=== PATIENT | female | born 2000 | race Caucasian/White ===

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

== ENCOUNTER 2022-07-08 17:46 | Emergency (ER) | payer MEDICAID, SELFPAY ==
[2022-07-08 17:48] VITALS: BP 124/57; PULSE 86; RESP 15; TEMP 36.4; O2SAT 97; BMI 29.2
== END 2022-07-08 20:40 | disposition left against medical advice (07) ==
LOC: ED 20:51
DX: Z53.21 Procedure and treatment not carried out due to patient leaving prior to being seen by health care provider (principal)

== ENCOUNTER 2022-08-13 23:27 | Emergency (ER) | payer MEDICAID, SELFPAY ==
[2022-08-13 23:29] VITALS: BP 113/69; PULSE 87; RESP 15; TEMP 36.2; O2SAT 100
--- NOTE | 2022-08-13 23:52 | EDS_ITS ---
HPI History of Present Illness Chief Complaint: General Illness Detail of Chief Complaint: Headache, possible UTI, upper respiratory symptoms Informant: patient Narrative Narrative: Patient presents to the emergency department with multiple complaints. Patient tells me that she is 14 weeks . She has been having urinary frequency and some mild dysuria for about 2 weeks but she thought it was all related to her being . Patient does get frequent urinary tract infections. Patient also she states that over the last 3 to 4 days she had some upper respiratory symptoms including mild sore throat and headache. She complains of some mild myalgias. Her boyfriend with similar symptoms and is concerned about COVID. Patient denies any vaginal bleeding. She had an ultrasound of the 4 weeks ago and all looked well. Patient denies any fever. She does get migraines frequently. She took some Tylenol but did not get much relief. Currently rates her headache a 9 out of 10. PFSH PFSH Home Medications cephalexin 500 mg capsule 500 mg PO Q6 #12 CAPSULES 08/31/21 [Rx Last Taken Unknown] ondansetron 4 mg disintegrating tablet 4 mg PO Q8H PRN nausea and vomiting #14 tabs 12/30/21 [Rx Last Taken Unknown] Allergy/AdvReac Type Severity Reaction Status Date / Time codeine Allergy Rash Verified 08/13/22 23:33 sertraline [From Zoloft] Allergy Other Verified 08/13/22 23:33 Social History Smoking Status: Never smoker Smokeless tobacco user: other alcohol intake: never ROS ROS ED Review of Systems ROS Unobtainable: other Constitutional Constitutional ED: Reports lethargy; Denies chills, fever(s), sweats or weight loss Eyes Eyes: Denies blurry vision, change in vision or diplopia ENT ENT ED: Denies rhinorrhea or sore throat Cardiovascular Cardiovascular: Denies chest pain, orthopnea or racing heartbeat Respiratory/Chest Respiratory/Chest: Reports cough; Denies dyspnea, dyspnea on exertion, orthopnea or sputum Gastrointestinal Gastrointestinal: Denies abdominal pain, diarrhea, nausea or vomiting Genitourinary Genitourinary ED: Reports dysuria and urinary frequency; Denies hematuria Musculoskeletal Musculoskeletal: Denies arthralgias, back pain, myalgias or neck pain Integumentary Denies abscess, Abrasions or rash Neurologic Neurologic: Reports headache(s); Denies weakness Psychiatric Psychiatric: Denies anxiety, depression or suicidal thoughts Endocrine Endocrinology: Denies polydipsia, polyphagia or polyuria Hematologic/Lymphatic Hematologic/Lymphatic: Denies easy bleeding, easy bruising or lymphadenopathy Allergic/Immunologic Allergic/Immunologic ED: Denies mouth swelling, tongue swelling or urticaria EXAM Physical Exam Const Vital Signs: 08/13/22 23:29 Temperature 97.1 F L Temperature Source Temporal Pulse Rate 87 Respiratory Rate 15 Blood Pressure 113/69 Blood Pressure Mean 83 Pulse Ox 100 Oxygen Delivery Method Room Air Positive well nourished and well developed General Appearance ED: well developed and NAD HEENT Reports TM's clear and moist mucous membranes normocephalic and atraumatic; Negative for trauma or tenderness Tympanic Membrane ED: Yes TM's clear Eyes PERRL and EOMs intact bilaterally General Eye ED: Negative for pale conjunctiva or scleral icterus Neck no lymphadenopathy, supple and no JVD General: Negative for tenderness Chest Wall inspection of chest normal and palpation of chest normal Chest: Negative for tenderness Resp normal respiratory effort and clear to auscultation bilaterally Effort and Inspection: Negative for respiratory distress or pain with movement Auscultation: Negative for rhonchi, wheezes or diminished lung sounds Cardio regular rate, regular rhythm, S1 normal heart sound, S2 normal heart sound and no murmurs Peripheral Pulses: pulses 2+ throughout GI normal to inspection, nondistended, normoactive bowel sounds, soft to palpation, non-tender, non-distended and no masses Back/Spine no CVA tenderness and no thoracic nor lumbar tenderness Extremity normal to inspection General Extremety ED: Negative for edema General Extremity: Negative for edema Neuro oriented x3, CN's II-XII intact bilaterally, no sensory deficits noted and gait normal Neuro Narrative: Finger-nose and heel rachel testing within normal limits, negative Romberg, negative for drift, fundi benign Sensorium / Orientation: awake, alert, oriented to person, oriented to place and oriented to time Motor Exam: strength 5/5 throughout and strength abnormal Psych mental status grossly normal Skin no rashes or lesions noted and no wounds MDM MDM MDM Narrative Medical decision making narrative: Patient presents the ER with multiple complaints. I did put an IV and gave her a liter of fluid as well as Reglan and Benadryl and her headache mostly resolved. Urinalysis was unremarkable. And she had a negative COVID and flu test. At this time I suspect possibly migraine. Also suspect she may have a viral URI. Patient recommended she follow-up with her primary care physician or MEDICAL SALES SPECIALIST within next 3 to 5 days. Lab Data Attestation: I reviewed the patient's lab results. Labs: Laboratory Results - last 24 hr 08/13/22 23:59 Urine Color Yellow Urine Clarity Clear Urine pH 6.0 Ur Specific Cicero 1.025 Urine Protein 15 H Urine Glucose (UA) Normal Urine Ketones 5 H Urine Occult Blood Negative Urine Nitrite Negative Urine Bilirubin Negative Urine Urobilinogen Normal Ur Leukocyte Esterase 25 H Urine RBC 0 SEEN Urine WBC 5-10 SEEN Ur Squamous Epith Cells 10-25 SEEN Urine Bacteria 1+ Urine Mucus 3+ Discharge Plan Triage Chief Complaint: General Illness ED Provider: Selena Moody Dx/Rx/DC Orders Clinical Impression: Migraine, Viral URI Instructions: ED, Migraine (Classical), ED URI, Viral, No Abx (Adult) Prescriptions: No Action cephalexin [cephalexin] 500 MG capsule 500 mg PO Q6 Qty: 12 0RF ondansetron 4 mg tablet,disintegrating 4 mg PO Q8H PRN (Reason: nausea and vomiting) Qty: 14 0RF Primary Care Provider: Lyla Cronin NP Referrals: Dana Gr MD [Med Staff - Active Staff] - 3-5 Days Care Physician,No Primary [Non-Staff] - Disposition Disposition: Home, Self Care
[2022-08-14] MEDS: Metoclopramide 10 MG/2 ML Vial IV (00:41)
[2022-08-14] MEDS: 0.9% Normal Saline 1,000 ML 1000 ML IV (00:41)
[2022-08-14] MEDS: DiphenhydrAMINE 50 MG/ML Syringe 25 MG IV (00:41)
[2022-08-14 01:00] LABS: Color, Urine Yellow (Yellow); Glucose, Dipstick Normal (Normal); Ketone-Dipstick 5 mg/dl (Negative); Leukocyte Esterase-Dipstick 25 /ul (Negative); Nitrite-Dipstick Negative (Negative); Occult Blood-Urine Negative /ul (Negative); Protein-Dipstick 15 mg/dl (Negative); Specific Gravity, Urine 1.025 (1.002-1.030); Urine Bilirubin Dipstick Negative (Negative); Urine Clarity Clear (Clear); Urine Urobilinogen Normal (Normal)
[2022-08-14 01:13] LABS: Red Blood Cells-Urine 0 SEEN /hpf (0-5); Squamous Epithelial Cells - UA 10-25 SEEN /hpf (5-10); White Blood Cells 5-10 SEEN /hpf (0-5)
[2022-08-14 01:14] LABS: Bacteria 1+ /hpf (None Seen); Mucous, Urine 3+ /hpf (<or=2+)
[2022-08-14 01:41] VITALS: O2SAT 99
== END 2022-08-14 02:03 | disposition home or self-care (01) ==
PROVIDERS: Emergency Provider Emergency Medicine; PCP Nurse Practitioner; Visit Provider Emergency Medicine
DX: O99.352 Diseases of the nervous system complicating pregnancy, second trimester (principal); O99.512 Diseases of the respiratory system complicating pregnancy, second trimester; G43.909 Migraine, unspecified, not intractable, without status migrainosus; J06.9 Acute upper respiratory infection, unspecified; Z3A.14 14 weeks gestation of pregnancy
CPT/HCPCS: 81001; 87428; 96361; 96374; 96375; 99283; J7030; A4216

== ENCOUNTER 2023-02-09 19:15 | Outpatient (CLI) | payer MEDICAID, SELFPAY ==
[2023-02-09 19:34] VITALS: BP 124/65; PULSE 103
[2023-02-09 19:38] VITALS: TEMP 36.7; O2SAT 98
[2023-02-09 19:39] VITALS: PULSE 91; O2SAT 96
[2023-02-09 19:44] VITALS: PULSE 89; O2SAT 96
[2023-02-09 19:46] VITALS: BMI 35.3
[2023-02-09 19:49] VITALS: PULSE 97; O2SAT 97
--- NOTE | 2023-02-10 06:08 | OB.TRI.HP_ITS ---
HPI - General General Date of Service: 02/09/23 HPI Narrative CARMELINA DEL ROSARIO, is a 22 F who presents with ctxs Maternal Data Information Final SONYA: 02[birth year] [facility] Medical History (Updated 02/10/23 @ 06:[address] Jefferson Herring MD) Anxiety Depression Genital herpes affecting Psychiatric disorder Home Medications vit no.95-ferrous fumarate 28 mg-folic acid 800 mcg tablet () 1 tab PO DAILY 02/09/23 [History Last Taken Unknown] risperidone 0.5 mg tablet 1.5 mg bipolar 02/09/23 [History Last Taken 02/08/23] valacyclovir 1 gram tablet 500 mg HSV 02/09/23 [History Last Taken 02/08/23] Allergy/AdvReac Type Severity Reaction Status Date / Time codeine Allergy Rash Verified 08/13/22 23:33 sertraline [From Zoloft] Allergy Other Verified 02/09/23 19:43 Social History Smoking Status: Never smoker Smokeless tobacco user: other alcohol intake: never NST FHR Rate Baby A Baseline: 125 Variability:: Moderate Accelerations:: 15 x 15 Decelerations:: None NST Reactive:: Yes Uterine Activity:: Irregular Assessment & Plan (1) False labor: COMMENT: 39&5 PLAN: Plan Reactive NST
== END 2023-02-09 21:20 | disposition home or self-care (01) ==
LOC: WPOUT 19:19 → WP 19:19
PROVIDERS: PCP Nurse Practitioner; Referring Provider Obstetrics & Gynecology; Visit Provider Obstetrics & Gynecology
DX: O47.1 False labor at or after 37 completed weeks of gestation (principal); Z3A.39 39 weeks gestation of pregnancy
CPT/HCPCS: 59025; 59050 ×2

== ENCOUNTER 2023-02-10 09:35 | Inpatient (IN) | payer MEDICAID, SELFPAY ==
[2023-02-10] VITALS (48 sets, daily range): BP systolic 89–163; BP diastolic 47–74; PULSE 75–134; RESP 15; TEMP 36.6–38.3; O2SAT 94–99; BMI 35.5
[2023-02-10] MEDS: fentaNYL 100 MCG/2 ML Ampul IV (10:30)
[2023-02-10 10:31] LABS: Absolute Lymphocyte Count 1.45 X10^3/uL (0.83-4.51); Basophil# 0.03 X10^3/uL; Basophil% 0.2 % (0-1); Eosinophil# 0.01 X10^3/uL; Eosinophils% 0.1 % (0-5); Hematocrit 40.5 % (37-47); Hemoglobin 13.8 g/dL (12.0-15.0); Lymphocyte # 1.45 X10^3/ul (0.83-4.51); Lymphocyte % 10.9 % (19-41); Mean Corp Hgb Conc 34.1 g/dL (32-36); Mean Corpuscular Hgb 32.5 pg (27.0-32.0); Mean Corpuscular Volume 95.5 fL (81-99); Mean Platelet Vol. 10.4 fl (6.2-12.0); Monocyte# 0.76 X10^3/uL; Monocyte% 5.7 % (0-10); NRBC Flagged by Analyzer 0 % (0-5); Neutrophil # 10.95 X10^3/uL (2.7-7.7); Neutrophil % 82.3 % (47-70); Platelet Count 188 K/mm3 (150-450); RBC Distribution Width CV 12.7 % (11.6-14.6); RBC Distribution Width SD 44.6 fl (35.1-43.9); Red Blood Count 4.24 M/mm3 (4.2-5.4); White Blood Count 13.3 K/mm3 (4.4-11.0)
[2023-02-10] MEDS: Lactated Ringers 1,000 ML 50 ML IV (10:32)
[2023-02-10 11:12] LABS: Syphilis Antibodies Non-reactive
[2023-02-10] MEDS: LACTATED RINGERS 500 ML 999 ML IV (11:31)
[2023-02-10] MEDS: fentaNYL-bupivacaine (epidural) 100 ML BAG EPIDURAL ×2 (11:35→16:20)
[2023-02-10] MEDS: Oxytocin 15 Units/NS 250ml 15 UNITS/250 ML IV.SOLN 2 UNITS IV (13:14)
[2023-02-10] MEDS: Lactated Ringers 1,000 ML 200 ML IV (13:46)
--- NOTE | 2023-02-10 16:37 | PCM.HP.OB ---
HPI - General General Date of Admission: 02/10/23 HPI Narrative CARMELINA DEL ROSARIO, is a 22 F @ 39.6 weeks who presents c/o contractions- found to be 3cm/90/-1, kept for labor. PFSH PFSH Medical History (Updated 02/10/23 @ 16:[address] Dana Gr MD) Anxiety Depression Genital herpes affecting Psychiatric disorder Psychiatric disorder Home Medications vit no.95-ferrous fumarate 28 mg-folic acid 800 mcg tablet () 1 tab PO DAILY 02/09/23 [History Last Taken Unknown] risperidone 0.5 mg tablet 1.5 mg bipolar 02/09/23 [History Last Taken 02/08/23] valacyclovir 1 gram tablet 500 mg HSV 02/09/23 [History Last Taken 02/08/23] Allergy/AdvReac Type Severity Reaction Status Date / Time codeine Allergy Rash Verified 08/13/22 23:33 sertraline [From Zoloft] Allergy Other Verified 02/09/23 19:43 Social History Smoking Status: Former smoker Smokeless tobacco user: other alcohol intake: never History Elective abortions Hx Para 0 Spontaneous abortions Hx # Term Pregnancies Ectopic pregnancies Hx # Pregnancies Multiple births # of living children Vital Signs Vital Signs Vital Signs: 02/10/23 10:32 02/10/23 10:32 02/10/23 11:15 Temperature Temperature Source Pulse Rate 103 H 93 Blood Pressure 123/63 H BP Systolic 123 BP Diastolic 63 Pulse Ox 02/10/23 11:15 02/10/23 11:18 02/10/23 11:18 Temperature Temperature Source Pulse Rate 104 H Blood Pressure 113/58 L BP Systolic 113 BP Diastolic 58 Pulse Ox 97 02/10/23 11:20 02/10/23 11:20 02/10/23 11:23 Temperature Temperature Source Pulse Rate 109 H Blood Pressure 113/69 BP Systolic 113 BP Diastolic 69 Pulse Ox 99 02/10/23 11:23 02/10/23 11:25 02/10/23 11:25 Temperature Temperature Source Pulse Rate 111 H 100 Blood Pressure BP Systolic BP Diastolic Pulse Ox 99 02/10/23 11:29 02/10/23 11:29 02/10/23 11:29 Temperature Temperature Source Pulse Rate 85 Blood Pressure 96/56 L BP Systolic 96 BP Diastolic 56 Pulse Ox 94 02/10/23 11:30 02/10/23 11:30 02/10/23 11:32 Temperature Temperature Source Pulse Rate 86 Blood Pressure 97/55 L BP Systolic 97 BP Diastolic 55 Pulse Ox 98 02/10/23 11:32 02/10/23 11:35 02/10/23 11:35 Temperature Temperature Source Pulse Rate 90 95 Blood Pressure BP Systolic BP Diastolic Pulse Ox 97 02/10/23 11:38 02/10/23 11:38 02/10/23 11:40 Temperature Temperature Source Pulse Rate 95 92 Blood Pressure 106/49 L BP Systolic 106 BP Diastolic 49 Pulse Ox 02/10/23 11:40 02/10/23 11:43 02/10/23 11:43 Temperature Temperature Source Pulse Rate 96 Blood Pressure 92/51 L BP Systolic 92 BP Diastolic 51 Pulse Ox 97 02/10/23 11:45 02/10/23 11:45 02/10/23 11:47 Temperature Temperature Source Pulse Rate 86 Blood Pressure 96/52 L BP Systolic 96 BP Diastolic 52 Pulse Ox 97 02/10/23 11:47 02/10/23 11:50 02/10/23 11:50 Temperature Temperature Source Pulse Rate 88 92 Blood Pressure BP Systolic BP Diastolic Pulse Ox 97 02/10/23 11:51 02/10/23 11:51 02/10/23 11:52 Temperature Temperature Source Pulse Rate 100 Blood Pressure 97/55 L 92/51 L BP Systolic 97 92 BP Diastolic 55 51 Pulse Ox 02/10/23 11:52 02/10/23 11:52 02/10/23 11:52 Temperature 97.9 F Temperature Source Temporal Pulse Rate 86 Blood Pressure BP Systolic BP Diastolic Pulse Ox 02/10/23 12:24 02/10/23 12:24 02/10/23 12:37 Temperature Temperature Source Temporal Pulse Rate 75 Blood Pressure 89/49 L BP Systolic 89 BP Diastolic 49 Pulse Ox 02/10/23 12:37 02/10/23 12:51 02/10/23 12:51 Temperature 98.3 F Temperature Source Pulse Rate 83 Blood Pressure 101/59 L BP Systolic 101 BP Diastolic 59 Pulse Ox 02/10/23 12:50 02/10/23 12:53 02/10/23 12:53 Temperature Temperature Source Pulse Rate 92 Blood Pressure 107/58 L BP Systolic 107 BP Diastolic 58 Pulse Ox 98 02/10/23 13:14 02/10/23 13:14 02/10/23 13:24 Temperature Temperature Source Pulse Rate 90 Blood Pressure 109/66 103/62 BP Systolic 109 103 BP Diastolic 66 62 Pulse Ox 02/10/23 13:24 02/10/23 13:54 02/10/23 13:54 Temperature Temperature Source Pulse Rate 78 90 Blood Pressure 105/61 BP Systolic 105 BP Diastolic 61 Pulse Ox 02/10/23 14:23 02/10/23 14:23 02/10/23 14:54 Temperature Temperature Source Pulse Rate 85 Blood Pressure 102/61 97/51 L BP Systolic 102 97 BP Diastolic 61 51 Pulse Ox 02/10/23 14:54 02/10/23 15:23 02/10/23 15:23 Temperature Temperature Source Pulse Rate 84 83 Blood Pressure 97/47 L BP Systolic 97 BP Diastolic 47 Pulse Ox 02/10/23 15:53 02/10/23 15:53 02/10/23 16:25 Temperature Temperature Source Pulse Rate 101 H Blood Pressure 109/63 93/51 L BP Systolic 109 93 BP Diastolic 63 51 Pulse Ox 02/10/23 16:25 Temperature Temperature Source Pulse Rate 93 Blood Pressure BP Systolic BP Diastolic Pulse Ox Weight Weight: 82.554 kg Body Mass Index (BMI) 35.5 Physical Exam Const alert and oriented x3 General Appearance: cooperative HEENT normocephalic GI GI Narrative: Gravid, non tender to palpation. OB / External & Speculum: external exam normal Extremity normal to inspection Skin no rashes or lesions noted Neuro oriented x3 and CN's II-XII intact bilaterally Psych Appearance: grossly normal Labs Labs Labs: Blood Type O POSITIVE Antibody Screen NEGATIVE Hct 40.5 % (37-47) Hgb 13.8 g/dL (12.0-15.0) Syphilis Total Ab Non-reactive Assessment & Plan (1) 39 weeks gestation of : (2) Active labor: (3) Rubella non-immune status, antepartum: (4) History of herpes genitalis: PLAN: Plan Admit to L&D [place] FHR/TOCO Epidural if requested for pain Monitor VS Anticipate no hsv lesions
[2023-02-10] MEDS: Lidocaine 1% (20 ml mdv) 20 ML Vial INFILT (18:41)
--- NOTE | 2023-02-10 19:20 | EX.PCM.OBRPT ---
Vaginal Delivery Maternal Presentation Maternal Presentation: Active Labor Operative Information Date of Procedure: 02/10/23 Pre-Operative Diagnosis: term gestation, H/o HSV, rubella non immune, active labor, 39 weeks gestation Post-Operative Diagnosis: same, live female infant Surgery / Procedure Performed: Vacuum Assisted Vaginal Delivery Type of Anesthesia: Epidural Drain: Trinidad to straight drain Estimated Blood Loss: 150 Time of Delivery: 18:37 Findings Description of Procedure: Patient progressed to fully dilated. Was pushing adequately scalp was at the perineum. Patient asking for assistance with delivery states that she could not continue to push. I discussed the option for vacuum assistance-discussed the risks benefits and alternatives. After discussion patient opting for trial of vacuum. Kiwi vacuum was then used placed at the flexion point Trinidad catheter was draining. Vacuum was placed at 550 mm of mercury green zone. 2 poles of the vacuum and the infant's head delivered the vacuum was then released. Good maternal pushing efforts and gentle downward traction delivered anterior shoulder followed by the rest the infant's body. The was vigorous and placed on the mother's chest for immediate skin to skin. Delayed cord clamping was performed. At this time Pitocin was started and cord blood was obtained. Placenta was delivered intact without complication. Second-degree perineal laceration was identified and repaired using 2-0 Vicryl and a 3-0 Rapide. 2% lidocaine was injected at the laceration site for better pain relief prior to repair. Patient tolerated well. Repair was hemostatic. Presentation: Vertex Amniotic Fluid Description: Clear Placental Delivery Description: Spontaneous Placenta Disposition: [facility] Specimen(s) Removed: Placenta Cord Vessel Description: 3 Vessels Cord Entanglement: None A Gender: Female (1 minute): 8 (5 minute): 9 Delayed Cord Clamping: Yes Post Vaginal Delivery Medications Given After Delivery: IV Pitocin Episiotomy Description: None Laceration: Perineal Extension/lac and 2nd degree Complication Complications: None
[2023-02-10] MEDS: Oxytocin 10 UNITS/ML Vial IM (19:24)
[2023-02-10] MEDS: Acyclovir 200 MG Capsule 400 MG PO (21:45)
[2023-02-10] MEDS: Ibuprofen 600 MG Tablet PO (21:45)
[2023-02-10] MEDS: RisperiDONE 0.5 MG Tablet 1.5 MG PO (21:45)
--- NOTE | 2023-02-10 23:31 | EKG12_ITS ---
Test Reason : Tachycardia/dizzynsess Blood Pressure : / mmHG Vent. Rate : 116 BPM Atrial Rate : 116 BPM P-R Int : 156 ms QRS Dur : 074 ms QT Int : 316 ms P-R-T Axes : 054 033 073 degrees QTc Int : 439 ms Sinus tachycardia Nonspecific ST and T wave abnormality Abnormal ECG No previous ECGs available Confirmed by CARROLL HAWKINS, WILLIE ([id number]), news assignment editor TIARA QUILES ([id number]) on 03/10/2023 1:49:29 PM Referred By: Maile Confirmed By:WILLIE HODGES MD
[2023-02-11 03:26] VITALS: BP 101/47; PULSE 98; RESP 15; TEMP 36.6; O2SAT 97
[2023-02-11] MEDS: Ibuprofen 600 MG Tablet PO (04:06)
[2023-02-11] MEDS: Benzocaine/Lanolin/Aloe Vera 1 SPRAY EACH TOPICAL (04:07)
[2023-02-11] MEDS: Acyclovir 200 MG Capsule 400 MG PO (06:12)
[2023-02-11 07:21] VITALS: BP 97/46; PULSE 90; RESP 16; TEMP 36.6; O2SAT 96
[2023-02-11 07:27] VITALS: PULSE 90; RESP 16
--- NOTE | 2023-02-11 08:19 | PCM.PN.OB ---
Subjective Subjective Patient seen at bedside. in room and hand expressing with patient. Patient denies any pain, SOB, or dizziness. Ambulating and voiding without difficulty. Possible discharge home tomorrow. Objective Data Objective Data Vital Signs: Vital Signs Temp Pulse Resp BP Pulse Ox O2 Del Method 97.8 F 90 16 97/46 L 96 Room Air 02/11/23 07:21 02/11/23 07:27 02/11/23 07:27 02/11/23 07:21 02/11/23 07:21 02/11/23 07:27 Oxygen Delivery Method Room Air Weight: 182 lb Body Mass Index (BMI) 35.5 Intake & Output: Intake and Output for Last 24 Hours 02/09/23 02/10/23 02/11/23 23:59 23:59 23:59 Intake Total 2781.46 / 2781.46 Output Total 1750 / 1750 1250 / 1250 Balance 1031.46 / 1031.46 -1250 / -1250 Lab / Micro Data 02/10/23 10:15 Labs: Laboratory Results - last 24 hr 02/10/23 10:15: WBC 13.3 H, RBC 4.24, Hgb 13.8, Hct 40.5, MCV 95.5, MCH 32.5 H, MCHC 34.1, RDW Std Deviation 44.6 H, RDW Coeff of Allyson 12.7, Plt Count 188, MPV 10.4, Immature Gran % (Auto) 0.800, Neut % (Auto) 82.3 H, Lymph % (Auto) 10.9 L, [place] % (Auto) 5.7, Eos % (Auto) 0.1, Baso % (Auto) 0.2, Absolute Neuts (auto) 11.0 H, Absolute Lymphs (auto) 1.45, Nucleated RBC % 0, Syphilis Total Ab Non-reactive, Blood Type Cancelled, Antibody Screen Cancelled 02/10/23 10:40: Blood Type O POSITIVE, Antibody Screen NEGATIVE ROS Eyes Eyes: Denies blurry vision, change in vision or spots in vision ENT HEENT: Denies dizziness or headache(s) Cardiovascular Cardiovascular: Denies abdominal pain, chest pain or dyspnea Respiratory/Chest Respiratory/Chest: Denies cough, dyspnea, shortness of breath at rest or shortness of breath with exertion Gastrointestinal Gastrointestinal: Denies abdominal pain, diarrhea or vomiting Genitourinary Genitourinary: Denies change in urinary stream, difficulty urinating or dysuria Musculoskeletal Musculoskeletal: Reports none Integumentary Integumentary: Denies rash Neurologic Neurologic: Denies dizziness, headache(s), memory loss or weakness Assessment & Plan (1) (spontaneous vaginal delivery): (2) Care and examination of lactating mother: PLAN: Plan PPD 1 Routine care support Anticipate discharge home tomorrow
[2023-02-11] MEDS: Acetaminophen 500 MG Tablet 1000 MG PO (08:32)
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
--- NOTE | 2023-02-11 12:19 | NURSING ---
This parenting skills instructor reviewed the documentation completed by Jean Azevedo.
[2023-02-11 13:53] VITALS: BP 114/61; PULSE 100; RESP 16; TEMP 36.2; O2SAT 97
--- NOTE | 2023-02-11 18:42 | NURSING ---
Discussed non-immune status for Rubella. MMR offered but refused
[2023-02-11 20:00] VITALS: BP 117/62; PULSE 70; RESP 17; TEMP 36.8; O2SAT 98
[2023-02-11] MEDS: RisperiDONE 0.5 MG Tablet 1.5 MG PO (22:42)
--- NOTE | 2023-02-12 06:23 | PCM.DC ---
Discharge Instructions Diet Discharge Diet: No restrictions Activity May resume sexual activity in: 6-8 weeks Weight Bearing Status: Weight bearing as tolerated Dressing / Incision Call your doctor if you observe: Fever of 101 or Higher, Inability to urinate, Using more than 1 pad per hour, Shortness of breath, Chest pain, Calf discomfort and Uncontrolled pain Follow Up Care Please Follow Up With: June Del Rosario CNM When: 2 weeks virtual visit/ 6 weeks in office Test Results: Test results from this visit will be discussed in further detail at your follow-up appointment, if applicable. Discharge Plan Admission Admit Date/Time: 02/10/23 09:35 Primary Reason for Your Visit: Labor and delivery Attending Provider: Dana Gr Primary Care Provider: Lyla Cronin LIBRARY ASSISTANT Instructions Forms: [facility]man Information Patient Instructions: After a Vaginal Additional Instructions / Restrictions: Follow up in the office in 2 weeks. Discharge Orders/Prescriptions Prescriptions: Continued valacyclovir 1 gram tablet 500 mg Patient Comments: TAKE 1 TABLET BY MOUTH TWICE A DAY risperidone 0.5 mg tablet 1.5 mg PNV cmb#95-ferrous fumarate-FA [] 28 mg iron- 800 mcg tablet 1 tab PO DAILY Referrals / Follow Up: Lyla Cronin NP, LIBRARY ASSISTANT-C [Primary Care Provider] - Disposition Disposition (needs filled in before D/C Order can be placed): Home, Self Care
--- NOTE | 2023-02-12 06:25 | PCM.PN.BLA ---
Progress Note Patient desired discharge last night. Instructions provided and were <30 minutes.
== END 2023-02-11 23:20 | disposition home or self-care (01) | DRG 560 ==
PROVIDERS: Admitting Provider Obstetrics & Gynecology; PCP Nurse Practitioner; Visit Provider Obstetrics & Gynecology
DX: O99.344 Other mental disorders complicating childbirth (principal); Z37.0 Single live birth; F31.9 Bipolar disorder, unspecified; O70.1 Second degree perineal laceration during delivery; Z3A.39 39 weeks gestation of pregnancy; Z79.899 Other long term (current) drug therapy; Z86.19 Personal history of other infectious and parasitic diseases; Z87.891 Personal history of nicotine dependence
CPT/HCPCS: 59025; 59050; 85025; 86780; 86850; 86900; 86901; 93005; 99221; J7120; G0378

== ENCOUNTER 2024-03-05 21:13 | Emergency (ER) | payer SELFPAY ==
[2024-03-05 21:14] VITALS: BP 127/84; PULSE 112; RESP 20; TEMP 36.8; O2SAT 100; BMI 33.6
--- NOTE | 2024-03-05 21:26 | ED.VIS.FEGU ---
HPI HPI - Female History of Present Illness Chief Complaint: Vag Bleeding Narrative Narrative: 23-year-old female, at approximately 4 weeks gestation presents with vaginal bleeding and pelvic pain that began today. She states that she is passing bright red blood with small clots vaginally. She relates history that she had her last menstrual period at the beginning of January, approximately 1 month ago around the second of the month. She was a few days late with her menses so she did a home test brought to her by her friend which was positive. That she may be having miscarriage versus an ectopic . She is unsure of her blood type, thinking that it was either O- or O+, but she does not remember getting a RhoGAM shot after the of her child last year in January. She denies any exacerbating or alleviating symptoms. She complains of lower abdominal pain. [facility] Medical History Care and examination of lactating mother (spontaneous vaginal delivery) History of herpes genitalis Rubella non-immune status, antepartum Active labor 39 weeks gestation of Psychiatric disorder Genital herpes affecting Anxiety Depression Psychiatric disorder Home Medications ?Medication ?Instructions ?Recorded ?Last Taken ?Type vit no.95-ferrous 1 tab PO DAILY 02/09/23 Unknown History fumarate 28 mg-folic acid 800 mcg tablet () risperidone 0.5 mg tablet 1.5 mg bipolar 02/09/23 02/08/23 History valacyclovir 1 gram tablet 500 mg HSV 02/09/23 02/08/23 History Allergy/AdvReac Type Severity Reaction Status Date / Time codeine Allergy Rash Verified 03/05/24 21:14 sertraline (From Zoloft) Allergy Other Verified 03/05/24 21:14 Social History Smoking Status: Former smoker Smokeless tobacco user: other alcohol intake: never ROS ROS ED ROS Narrative Constitutional: No fever, positive chills. HEENT: No sore throat. No neck pain. No loss of vision. No rhinorrhea. Cardiovascular: No chest pain. No palpitations. No pedal edema. Respiratory: No cough, no shortness of breath. Abdominal: No abdominal pain. No nausea. No vomiting. Genitourinary: No dysuria. No hematuria. Positive vaginal bleeding, positive pelvic pain and lower abdominal pain beginning today. Passing bright red blood with small clots. Musculoskeletal: No myalgias. Positive arthralgias. Neurologic: No headaches. No dizziness. No lightheadedness. Skin: No rash. No change in color. Psychiatric: No depression. No anxiety. EXAM Physical Exam Narrative Exam Narrative: Afebrile. Vital signs noted. Nontoxic-appearing. HEENT: Normocephalic. Atraumatic. PERRL, EOMI. Neck soft and supple. No point tenderness or step off. Cardiovascular: Positive tachycardia. No murmurs, rubs, or gallops appreciated. Respiratory: No tachypnea. Lungs clear to auscultation bilaterally. Gastrointestinal: Abdomen soft, mild tenderness to palpation bilateral lower quadrants more towards pelvis/suprapubic with normoactive bowel sounds. No rebound or guarding. Genitourinary: Chaperoned pelvic examination reveals small amount of dark red blood in the vaginal vault with small clot which was cleared with cotton tip swab. Os is closed, no cervical motion tenderness. Neurological: Awake. Alert. Nonfocal, nonlateralizing. Ambulates in the ED and able to transfer to cot. Skin: No rash. Normal color. No pallor. Musculoskeletal: No pedal edema. Full range of motion extremities. Const Vital Signs: 03/05/24 21:14 Temperature 98.3 F Temperature Source Oral Pulse Rate 112 H Respiratory Rate 20 H Blood Pressure 127/84 H Blood Pressure Mean 98 Pulse Ox 100 Oxygen Delivery Method Room Air MDM MDM MDM Narrative Medical decision making narrative: Differential diagnosis does include ectopic versus threatened AB/miscarriage versus intrauterine and vaginal bleeding with . Comprehensive workup was pursued. I did review her prior laboratory work and she is O+ with negative antibody screen last year. I will repeat an ABO Rh, and obtain CBC, CMP, and urinalysis. Initially I will screen her with a serum test qualitative but I also ordered a quantitative measurement as well. Ultrasound was also ordered, and depending on quantitative measurement, this will be compared. She is to see a [facility] FORM MAKER PLASTER who delivered her child last year. Chaperoned pelvic exam will be performed as well. See physical exam. I reviewed the laboratory work that has returned and she has slightly elevated white count of 11.7 with hemoglobin normal at 13.9, hematocrit 42.0. I do not feel that she requires a blood transfusion. Urinalysis does show leukocyte esterase at 500 with 15 ketones and occult blood 250. This may be more of a contaminated specimen. Blood type is O+. At this point in time, the remainder of her workup for rule out ectopic versus IUP versus early is still in process. Patient will be signed out to the overnight physician, Dr. Herb Hale, to complete the workup, check the results, and make final disposition on this patient. He will discuss the patient with the FORM MAKER PLASTER as needed. Disposition is pending. Patient is in stable condition. Lab Data Attestation: I reviewed the patient's lab results. Labs: Laboratory Results - last 24 hr 03/05/24 03/05/24 19:50 21:50 WBC 11.7 H RBC 4.60 Hgb 13.9 Hct 42.0 MCV 91.3 MCH 30.2 MCHC 33.1 RDW Std Deviation 41.4 RDW Coeff of Allyson 12.6 Plt Count 340 MPV 9.5 Immature Gran % (Auto) 0.300 Neut % (Auto) 63.7 Lymph % (Auto) 29.1 Mccracken % (Auto) 6.2 Eos % (Auto) 0.4 Baso % (Auto) 0.3 Absolute Neuts (auto) 7.5 Absolute Lymphs (auto) 3.41 Nucleated RBC % 0 Urine Color Red Urine Clarity Turbid Urine pH 5.0 Ur Specific [place] 1.020 Urine Protein 100 H Urine Glucose (UA) Normal Urine Ketones 15 H Urine Occult Blood 250 H Urine Nitrite Negative Urine Bilirubin Negative Urine Urobilinogen 1 H Ur Leukocyte Esterase 500 H Blood Type O POSITIVE Discharge Plan Triage Chief Complaint: Vag Bleeding ED Provider: Marty Jauregui Dx/Rx/DC Orders Prescriptions: No Action valacyclovir 1 gram tablet 500 mg Patient Comments: TAKE 1 TABLET BY MOUTH TWICE A DAY risperidone 0.5 mg tablet 1.5 mg PNV cmb#95-ferrous fumarate-FA [] 28 mg iron- 800 mcg tablet 1 tab PO DAILY Primary Care Provider: Lyla Kaufman NP Referrals: Lyla Kaufman TACKING MACHINE OPERATOR, TACKING MACHINE OPERATOR-C [Primary Care Provider] - Print Language: Arabic
[2024-03-05 21:51] LABS: Mucous, Urine 0 SEEN /hpf (<or=2+)
[2024-03-05 21:54] LABS: Color, Urine Red (Yellow); Glucose, Dipstick Normal (Normal); Ketone-Dipstick 15 mg/dl (Negative); Leukocyte Esterase-Dipstick 500 /ul (Negative); Nitrite-Dipstick Negative (Negative); Occult Blood-Urine 250 /ul (Negative); Protein-Dipstick 100 mg/dl (Negative); Urine Bilirubin Dipstick Negative (Negative); Urine Clarity Turbid (Clear); Urine Urobilinogen 1 mg/dl (Normal)
[2024-03-05 22:04] LABS: Absolute Lymphocyte Count 3.41 X10^3/uL (0.83-4.51); Absolute Neutrophil Count 7.5 X10^3/uL (2.0-7.7); Basophil# 0.04 X10^3/uL; Basophil% 0.3 % (0-1); Eosinophil# 0.05 X10^3/uL; Eosinophils% 0.4 % (0-5); Hemoglobin 13.9 g/dL (12.0-15.0); Lymphocyte # 3.41 X10^3/ul (0.83-4.51); Lymphocyte % 29.1 % (19-41); Mean Corp Hgb Conc 33.1 g/dL (32-36); Mean Corpuscular Hgb 30.2 pg (27.0-32.0); Mean Corpuscular Volume 91.3 fL (81-99); Mean Platelet Vol. 9.5 fl (6.2-12.0); Monocyte# 0.73 X10^3/uL; Monocyte% 6.2 % (0-10); NRBC Flagged by Analyzer 0 % (0-5); Neutrophil # 7.45 X10^3/uL (2.7-7.7); Neutrophil % 63.7 % (47-70); Platelet Count 340 K/mm3 (150-450); RBC Distribution Width CV 12.6 % (11.6-14.6); RBC Distribution Width SD 41.4 fl (35.1-43.9); White Blood Count 11.7 K/mm3 (4.4-11.0)
[2024-03-05 22:05] LABS: Red Blood Cells-Urine > 100 SEEN /hpf (0-5)
[2024-03-05 22:09] LABS: Bacteria 4+ /hpf (None Seen)
[2024-03-05 22:11] LABS: Squamous Epithelial Cells - UA 5-10 SEEN /hpf (5-10)
[2024-03-05 22:15] LABS: White Blood Cells 50-100 SEEN /hpf (0-5)
[2024-03-05 22:20] LABS: Internal QC Validated? YES +Cl - CLEAR BKGD; Pregnancy, Serum, hCG Quali. NEGATIVE Negative
[2024-03-05 22:26] LABS: ALB/GLOB Ratio 1.1 RATIO (0.9-2.4); AST(SGOT) 18 U/L (15-37); Alanine Aminotransfer ALT/SGPT 18 U/L (13-56); Albumin, Serum 3.9 g/dL (3.2-5.0); Alkaline Phosphatase 75 U/L (45-117); Anion Gap 10 (5-15); BUN 10 mg/dL (7-18); BUN/Creat Ratio 13.8 RATIO (10-20); Calcium,Total 9.3 mg/dL (8.5-10.1); Chloride 104 mmol/L (98-107); Creatinine, Serum 0.73 mg/dL (0.55-1.02); EST Glomerular Filtration Rate 107 mL/min (>60); Est Glom Filt Rate - Afr Amer 130 mL/min (>60); Globulin 3.5 g/dL (2.2-4.2); Glucose 95 mg/dL (74-106); Potassium 2.9 mmol/L (3.5-5.1); Protein, Total 7.4 g/dL (6.4-8.2); Sodium Level 137 mmol/L (136-145)
[2024-03-05 22:30] LABS: hCG Titer Quant., Serum 1 mIU/mL (1-3)
--- NOTE | 2024-03-05 22:53 | ED.VIS.FEGU ---
HPI <Dr. Herb Hale MD - Last Filed: 03/05/24 22:58> HPI - Female History of Present Illness Chief Complaint: Vag Bleeding PFSH <Dr. Herb Hale MD - Last Filed: 03/05/24 22:58> PFSH Medical History Care and examination of lactating mother (spontaneous vaginal delivery) History of herpes genitalis Rubella non-immune status, antepartum Active labor 39 weeks gestation of Psychiatric disorder Genital herpes affecting Anxiety Depression Psychiatric disorder Home Medications ?Medication ?Instructions ?Recorded ?Last Taken ?Type valacyclovir 1 gram tablet 500 mg PO DAILY HSV 02/09/23 02/08/23 History fluoxetine 20 mg capsule 20 mg PO DAILY 03/05/24 Unknown History sulfamethoxazole 800 1 tab PO BID #6 TABLETS 03/05/24 Unknown Rx mg-trimethoprim 160 mg tablet Allergy/AdvReac Type Severity Reaction Status Date / Time codeine Allergy Rash Verified 03/05/24 21:14 sertraline (From Zoloft) Allergy Other Verified 03/05/24 21:14 Social History Smoking Status: Current some day smoker tobacco type: e-cigarettes Smokeless tobacco user: other alcohol intake: never EXAM <Dr. Herb Hale MD - Last Filed: 03/05/24 22:58> Physical Exam Const Vital Signs: 03/05/24 21:14 Temperature 98.3 F Temperature Source Oral Pulse Rate 112 H Respiratory Rate 20 H Blood Pressure 127/84 H Blood Pressure Mean 98 Pulse Ox 100 Oxygen Delivery Method Room Air <Marty Jauregui MD - Last Filed: 03/07/24 08:40> Physical Exam Const Vital Signs: 03/05/24 21:14 Temperature 98.3 F Temperature Source Oral Pulse Rate 112 H Respiratory Rate 20 H Blood Pressure 127/84 H Blood Pressure Mean 98 Pulse Ox 100 Oxygen Delivery Method Room Air MDM <Dr. Herb Hale MD - Last Filed: 03/05/24 22:58> MDM MDM Narrative Medical decision making narrative: This is an addendum to the previous note. Patient checked out to me by other ED physician, seen for threatened , patient about 4-5 weeks along by dates started having bleeding and nonlateralizing pelvic pain today. Her qualitative test is negative and a quant had already been ordered and it came back as 1. Therefore I agree that ultrasound does not need to be called in emergently. I evaluated the patient. She appears very comfortable she is not in pain right now. I reviewed her labs. She has a low potassium, she has been eating and drinking normally and does not have any renal abnormalities so I think this can be rechecked as an outpatient, it is possible that she was hyperventilating from anxiety earlier given what was going on and that could cause this reading without representing total body potassium loss. She likely was miscarrying today and had intrauterine demise prior to the day. Is also possible she had a false positive home test. Her urine looks infected. She has been having urinary frequency without any dysuria lately. I think it is worth treating given the context. Given prescription for Bactrim and first dose here, and referral to MARKETING MANAGER, she is in the [facility] system so we will refer her to their practice. Lab Data Labs: Laboratory Results - last 24 hr 03/05/24 03/05/24 19:50 21:50 WBC 11.7 H RBC 4.60 Hgb 13.9 Hct 42.0 MCV 91.3 MCH 30.2 MCHC 33.1 RDW Std Deviation 41.4 RDW Coeff of Allyson 12.6 Plt Count 340 MPV 9.5 Immature Gran % (Auto) 0.300 Neut % (Auto) 63.7 Lymph % (Auto) 29.1 Campbell % (Auto) 6.2 Eos % (Auto) 0.4 Baso % (Auto) 0.3 Absolute Neuts (auto) 7.5 Absolute Lymphs (auto) 3.41 Nucleated RBC % 0 Sodium 137 Potassium 2.9 L Chloride 104 Carbon Dioxide 23.0 Anion Gap 10 BUN 10 Creatinine 0.73 Estim Creat Clear Calc 112.70 Est GFR (MDRD) Af Amer 130 Est GFR (MDRD) Non-Af 107 BUN/Creatinine Ratio 13.8 Glucose 95 Calcium 9.3 Total Bilirubin 0.30 AST 18 ALT 18 Alkaline Phosphatase 75 Total Protein 7.4 Albumin 3.9 Globulin 3.5 Albumin/Globulin Ratio 1.1 HCG, Quant 1 Serum , Qual NEGATIVE Urine Color Red Urine Clarity Turbid Urine pH 5.0 Ur Specific [place] 1.020 Urine Protein 100 H Urine Glucose (UA) Normal Urine Ketones 15 H Urine Occult Blood 250 H Urine Nitrite Negative Urine Bilirubin Negative Urine Urobilinogen 1 H Ur Leukocyte Esterase 500 H Urine RBC > 100 SEEN Urine WBC 50-100 SEEN Ur Squamous Epith Cells 5-10 SEEN Urine Bacteria 4+ Urine Mucus 0 SEEN Blood Type O POSITIVE <Marty Jauregui MD - Last Filed: 03/07/24 08:40> MDM MDM Narrative Medical decision making narrative: Dr. Hale: This is an addendum to the previous note. Patient checked out to me by other ED physician, seen for threatened , patient about 4-5 weeks along by dates started having bleeding and nonlateralizing pelvic pain today. Her qualitative test is negative and a quant had already been ordered and it came back as 1. Therefore I agree that ultrasound does not need to be called in emergently. I evaluated the patient. She appears very comfortable she is not in pain right now. I reviewed her labs. She has a low potassium, she has been eating and drinking normally and does not have any renal abnormalities so I think this can be rechecked as an outpatient, it is possible that she was hyperventilating from anxiety earlier given what was going on and that could cause this reading without representing total body potassium loss. She likely was miscarrying today and had intrauterine demise prior to the day. Is also possible she had a false positive home test. Her urine looks infected. She has been having urinary frequency without any dysuria lately. I think it is worth treating given the context. Given prescription for Bactrim and first dose here, and referral to MARKETING MANAGER, she is in the [facility] system so we will refer her to their practice. Lab Data Labs: Laboratory Results - last 24 hr 03/05/24 03/05/24 19:50 21:50 WBC 11.7 H RBC 4.60 Hgb 13.9 Hct 42.0 MCV 91.3 MCH 30.2 MCHC 33.1 RDW Std Deviation 41.4 RDW Coeff of Allyson 12.6 Plt Count 340 MPV 9.5 Immature Gran % (Auto) 0.300 Neut % (Auto) 63.7 Lymph % (Auto) 29.1 Campbell % (Auto) 6.2 Eos % (Auto) 0.4 Baso % (Auto) 0.3 Absolute Neuts (auto) 7.5 Absolute Lymphs (auto) 3.41 Nucleated RBC % 0 Sodium 137 Potassium 2.9 L Chloride 104 Carbon Dioxide 23.0 Anion Gap 10 BUN 10 Creatinine 0.73 Estim Creat Clear Calc 112.70 Est GFR (MDRD) Af Amer 130 Est GFR (MDRD) Non-Af 107 BUN/Creatinine Ratio 13.8 Glucose 95 Calcium 9.3 Total Bilirubin 0.30 AST 18 ALT 18 Alkaline Phosphatase 75 Total Protein 7.4 Albumin 3.9 Globulin 3.5 Albumin/Globulin Ratio 1.1 HCG, Quant 1 Serum , Qual NEGATIVE Urine Color Red Urine Clarity Turbid Urine pH 5.0 Ur Specific [place] 1.020 Urine Protein 100 H Urine Glucose (UA) Normal Urine Ketones 15 H Urine Occult Blood 250 H Urine Nitrite Negative Urine Bilirubin Negative Urine Urobilinogen 1 H Ur Leukocyte Esterase 500 H Urine RBC > 100 SEEN Urine WBC 50-100 SEEN Ur Squamous Epith Cells 5-10 SEEN Urine Bacteria 4+ Urine Mucus 0 SEEN Blood Type O POSITIVE Discharge Plan Triage Chief Complaint: Vag Bleeding ED Provider: Marty Jauregui Dx/Rx/DC Orders Clinical Impression: Spontaneous miscarriage, Acute cystitis without hematuria Instructions: ED Miscarriage Spontaneous Prescriptions: New sulfamethoxazole-trimethoprim 800-160 mg tablet 1 tab PO BID Qty: 6 0RF No Action valacyclovir 1 gram tablet 500 mg PO DAILY Patient Comments: TAKE 1 TABLET BY MOUTH TWICE A DAY fluoxetine 20 mg capsule 20 mg PO DAILY Primary Care Provider: Lyla Kaufman NP Referrals: Nadine Zavala DO [Med Staff - Active Staff] - 3-5 Days Lyla Kaufman FIELD SERVICE TECH, FIELD SERVICE TECH-C [Primary Care Provider] - Print Language: Zimbabwean Disposition Disposition: Home, Self Care Discharge Date/Time: 03/05/24 23:10
[2024-03-05 23:06] VITALS: BP 125/82; PULSE 103; RESP 20; TEMP 36.8; O2SAT 94
[2024-03-05] MEDS: Smz/Tmp Ds Tablet 1 TABLET PO (23:06)
== END 2024-03-05 23:10 | disposition home or self-care (01) ==
PROVIDERS: Emergency Provider Emergency Medicine; PCP Nurse Practitioner; Visit Provider Emergency Medicine
DX: O03.88 Urinary tract infection following complete or unspecified spontaneous abortion (principal); F17.290 Nicotine dependence, other tobacco product, uncomplicated
CPT/HCPCS: 80053; 81001; 84702; 84703; 85025; 86900; 86901; 99283; A4216